=== PATIENT | female | born 2000 | race Hispanic/Latino ===

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

== ENCOUNTER → 2023-01-01 | Outpatient (CLI) | payer MEDICAID | END | disposition home or self-care (01) | LOC: RAH 07:42 | PROVIDERS: ATTEND Internal Medicine Gastroenterology | DX: R68.81 Early satiety (principal); R14.0 Abdominal distension (gaseous) | CPT/HCPCS: 78264; A9541 ==

== ENCOUNTER → 2025-01-12 | Outpatient (CLI) | payer MEDICAID ==
[~2025-01-12] MED LIST: IOHEXOL 350 MG/ML 100ML INFUS..BTL IV ONE
--- NOTE | 2025-01-13 09:12 | HMCIMG ---
EXAM: CT Head with and without Intravenous Contrast. CLINICAL HISTORY: Other diseases of vocal cords, Dysphonia TECHNIQUE: Axial computed tomography images of the head/brain with and without intravenous contrast. CONTRAST: With intravenous contrast. COMPARISON: None provided. FINDINGS: BRAIN No evidence of acute hemorrhage. No mass lesion. No abnormal enhancement. No CT evidence for acute territorial infarct. No midline shift or extra-axial collections. VENTRICLES: No hydrocephalus. ORBITS: The orbits are unremarkable. SINUSES AND MASTOIDS: The paranasal sinuses and mastoid air cells are clear. BONES: No fracture. IMPRESSION: 1. No acute intracranial findings. /Weston
--- NOTE | 2025-01-13 09:23 | HMCIMG ---
EXAM: CT Neck with and without Intravenous Contrast. CLINICAL HISTORY: Other diseases of vocal cords, Dysphonia TECHNIQUE: Axial computed tomography images of the neck with and without intravenous contrast. Sagittal and coronal reformatted images were generated. CONTRAST: None. COMPARISON: None provided. FINDINGS: PHARYNX: Unremarkable appearance of the nasopharynx and hypopharynx. No pharyngeal mucosal based mass lesions. Bilateral mildly enlarged palatine tonsil, possibility of tonsillitis, advise clinical correlation Foci of calcification in bilateral palatine tonsils LARYNX: Normal appearance of the larynx. Unremarkable epiglottis. RETROPHARYNGEAL SPACE: The retropharyngeal soft tissues appear within normal limits. SALIVARY GLANDS: Unremarkable appearance of the parotid, submandibular, and sublingual glands. LYMPH NODES: No significant lymphadenopathy. THYROID: The thyroid gland is unremarkable. No nodule is evident. BONES: No acute osseous abnormality. No aggressive appearing osseous lesion. IMPRESSION: 1. No acute findings. 2. Bilateral mildly enlarged palatine tonsils with foci of calcification, possibly representing tonsillitis. Clinical correlation advised. /Kelsie
== END | disposition home or self-care (01) ==
LOC: RAH 09:20
PROVIDERS: ATTEND Otolaryngology
DX: J35.1 Hypertrophy of tonsils (principal); J38.3 Other diseases of vocal cords; R49.0 Dysphonia
CPT/HCPCS: 70470; 70492; Q9967